=== PATIENT | male | born 1990 | race Caucasian/White ===

== ENCOUNTER 2021-11-14 08:52 | Emergency (ER) | payer OTHER ==
[~2021-11-14] VITALS: Ht 175.3 cm; Wt 83.9 kg
[2021-11-14] MEDS ORDERED: CIPROFLOXACIN500 MG PO (09:03)
[2021-11-14] MEDS ORDERED: MUPIROCIN15 GM TP (09:04)
== END 2021-11-14 11:23 | disposition home or self-care (01) ==
LOC: ER 08:52
DX: L02.01 Cutaneous abscess of face (principal)